=== PATIENT | male | born 1990 | race Caucasian/White ===

== ENCOUNTER 2017-03-12 17:24 | Emergency (ER) | payer SELFPAY ==
[~2017-03-12] VITALS: Ht 154.9 cm; Wt 58.2 kg
[2017-03-12 17:45] VITALS: BP 128/82; PULSE 70; RESP 16; O2SAT 99
--- NOTE | 2017-03-12 18:50 | ED.REPORT ---
HPI-General Illness Date of Service Mar 12, 2017 ED Provider: Dr. Rufino Sharp The patient is a 26 year old male who presents to the ED due to difficulty voiding and defecating for the past 2 months. He is able to eat and drink okay. Associated symptoms include dysuria. He denies hematuria, hematochezia, fever, diaphoresis, and weight loss. Nursing Notes Stated Complaint: PAINFUL URINATION, TROUBLE WITH BOWELS Chief Complaint: General Complaint Nursing Notes Reviewed: Yes Allergies: Coded Allergies: No Known Allergies (Unverified , 07/19/16) No Active Prescriptions or Reported Meds General Time Seen by MD: 18:50 Chief Complaint Other (constipation) Hx Obtained From: Patient Arrived By: Walk-in Sudden in Onset?: Yes Onset Occurred: More than a week ago... (2 months) Symptom Duration: Since onset Severity: Current: No pain currently Pertinent Negative: Pt denies other symptoms Recent Healthcare: No recent doctor visit, No recent hospitalization Similar Sx Previous: No Past Medical History Past Medical History healthy Past Surgical History Reports: Appendectomy Smoking History Current Every Day Smoker Social History Alcohol Use: >5 per day Drug Use: Denies drug use Other Social History: Good social support Occupation lives with friend, work in [employer] 07/19/2016 Ambulatory Status Independent Review of Systems Full Review of Systems GI: Reports: Constipation, Denies: Bloody/tarry stool, Hematochezia Male: Reports Dysuria, Reports Urination decreased, Denies Hematuria Complete sys rev & neg: except as marked. Physical Exam Vital Signs Vital Signs Date Time Temp Pulse Resp B/P Pulse Ox O2 Delivery O2 Flow Rate FiO2 03/12/17 20:52 37.2 63 16 133/81 99 Room Air 03/12/17 17:45 36.7 70 16 128/82 99 Room Air Initial VS: Reviewed General/Constitutional: Awake, Alert, Cooperative, Not toxic appearing Head / Eyes: Atraumatic, Normocephalic ENT: Atraumatic, Airway patent, Mucous membranes moist Neck: Atraumatic, Supple Respiratory / Chest: Atraumatic, Breath sounds NL, Breath sounds = bilat, No respiratory distress Cardiovascular: Heart rate NL, Regular rhythm, Heart sounds NL, No gallop, No murmurs, No rubs Abdomen: Atraumatic, Soft, BS normoactive Back: No CVA tenderness Upper Extremities Upper Extremity / MS: Atraumatic, Inspection NL, Full range of motion, No deformity Wrist / Hand: Atraumatic, Inspection NL, Full range of motion, No deformity Lower Extremity / Pelvis / MS: Atraumatic, Inspection NL, Full range of motion , No deformity Ankle / Foot: Atraumatic, Inspection NL, Full range of motion, No deformity Skin: Atraumatic, Color NL, No rash Neurologic: Oriented X3, Speech NL, No motor deficits Interpretation & Diagnostics Lab Results Interpretation Test 03/12/17 18:45 Urine Color Dark yellow (YELLOW) Urine Appearance Cloudy (CLEAR,HAZY) Urine pH 6.0 (5.0-8.0) Urine Specific [place] 1.025 (1.003-1.035) Urine Protein 100mg/dL (NEG,TRACE) Urine Glucose (UA) Negativemg/dL (NEGATIVE) Urine Ketones Tracemg/dL (NEGATIVE) Urine Occult Blood Small (NEGATIVE) Urine Nitrite Negative (NEGATIVE) Urine Bilirubin Negative (NEGATIVE) Urine Urobilinogen 1.0mg/dL (NORMAL) Urine Leukocyte Esterase Small (NEGATIVE) Urine RBC 3-10/hpf (0-2) Urine WBC 6-10/hpf (0-5) Urine Epithelial Cells Few/hpf (NONE-MOD) Urine Crystals None seen (NONE SEEN) Urine Bacteria Few/hpf (NONE-FEW) Urine Hyaline Casts None/lpf (NONE) Urine Granular Casts None seen (NONE SEEN) Urine Waxy Casts None seen (NONE SEEN) Urine Red Blood Cell Casts None seen (NONE SEEN) Urine White Blood Cell Casts None seen (NONE SEEN) Urine Mucus Present (None Seen) Urine Trichomonas None seen (NONE SEEN) Urine Yeast None (NONE SEEN) Urinalysis Comment None Urine Culture Reflexed Indicated Re-Eval/Medical Decision Med Decision/Clinical Course 26-year-old male who appears well with dysuria that he states it been ongoing for a couple of months. He also complains of a sensation of needing to have a bowel movement after having evacuated his bowels. He is not having constipation having abdominal pain he is not having constitutional symptoms. Urinalysis suggests a urinary tract infection. We will treat this and refer him to primary care for further evaluation of his symptoms. Counseled Regarding: Diagnosis, Lab results, Need for follow-up, When/why to return to ED Discharge & Departure Primary Impression: Urinary tract infection Urinary tract infection type: site unspecified Hematuria presence: without hematuria Qualified Code: N39.0 - Urinary tract infection, site not specified Disposition: Home Discharge Condition All VS Reviewed: Yes Condition: Stable Patient Instructions: Urinary Tract Infection in Men (ED) Additional Instructions: Thank you for entrusting us with your care today. I am sending you home with antibiotics for a urinary tract infection. Take this as directed. Get plenty of fluids and stay hydrated. supervisor varnish a fiber supplement, called Metamucil, to help your bowel habits. Make a follow up appointment in the next week with your primary care physician for further care. Return to the Emergency Department for fevers or vomiting. I hope you feel better soon! Referrals: [facility] Scribe Attestation Portion of this note were transcribed by Yvonne Siegel. I, Dr. Sharp, personally performed the history, physical exam, and medical decision-making: I reviewed and confirmed the accuracy for the information in the transcribed note. Signed by: eva Echavarria, 03/12/17 [id number] Rufino Sharp MD Mar 12, 2017 18:50 Yvonne Siegel Mar 12, 2017 18:52
[2017-03-12 19:28] LABS: APPEARANCE,URINE CLOUDY (CLEAR,HAZY); COLOR,URINE DARK YELLOW (YELLOW); OCCULT BLOOD,URINE SMALL (NEGATIVE)
[2017-03-12 20:52] VITALS: BP 133/81; PULSE 63; RESP 16; O2SAT 99
[2017-03-13] MEDS ORDERED: _Trimethoprim-Sulfa 160/800 mg Tablet PO SCH (08:30)
== END 2017-03-12 22:15 | disposition home or self-care (01) ==
LOC: SED 17:24
DX: N39.0 Urinary tract infection, site not specified (principal); F17.200 Nicotine dependence, unspecified, uncomplicated